=== PATIENT | male | born 1945 | race Caucasian/White ===

== ENCOUNTER 2016-05-29 12:47 | Emergency (ER) | END 2016-05-29 16:39 | disposition home or self-care (01) | CPT/HCPCS: 10060; 87070; 87205; 99283; A9270 ==

== ENCOUNTER 2016-11-01 08:50 | Outpatient (CLI) | payer MEDICARE, OTHER ==
[2016-11-01 19:05] LABS: ALBUMIN/GLOBULIN RATIO 1.2 (1.0-2.2); BILIRUBIN,TOTAL 1.2 mg/dL (0.2-1.0); CALCIUM 8.6 mg/dL (8.5-10.3); CREATININE 0.8 mg/dL (0.6-1.2); POTASSIUM 4.1 mmol/L (3.5-5.0); TOTAL PROTEIN 6.5 g/dL (6.7-8.2)
[2016-11-03 19:51] LABS: TEST RESULT REPORT (())
[2016-11-04 00:12] LABS: HDL LARGE 5261 nmol/L (4334-10815); LDL MEDIUM 238 nmol/L (167-465); LDL PARTICLE NUMBER 977 nmol/L (1016-2185); LDL PATTERN B Pattern (A); LDL PEAK SIZE 215.6 Angstrom (> OR = 218.2); LDL SMALL 182 nmol/L (123-441)
== END 2016-11-01 08:51 | disposition home or self-care (01) ==
LOC: LAB.F 08:50
PROVIDERS: ATTEND Specialist
DX: I25.10 Atherosclerotic heart disease of native coronary artery without angina pectoris (principal); E78.5 Hyperlipidemia, unspecified; I10 Essential (primary) hypertension; R60.0 Localized edema; Z91.89 Other specified personal risk factors, not elsewhere classified; J44.9 Chronic obstructive pulmonary disease, unspecified
CPT/HCPCS: 36415; 80053; 81599; 82465; 83704; 83718; 84478

== ENCOUNTER 2017-05-08 11:29 | Outpatient (CLI) | payer MEDICARE, OTHER ==
[2017-05-08 18:52] LABS: ALBUMIN 3.9 g/dL (3.2-5.5); ALBUMIN/GLOBULIN RATIO 1.4 (1.0-2.2); BILIRUBIN,TOTAL 1.5 mg/dL (0.2-1.0); CALCIUM 8.5 mg/dL (8.5-10.3); TOTAL PROTEIN 6.6 g/dL (6.7-8.2)
[2017-05-10 19:31] LABS: HDL LARGE 4172 nmol/L (4334-10815); LDL PARTICLE NUMBER 733 nmol/L (1016-2185); LDL PATTERN B Pattern (A); LDL PEAK SIZE 214.4 Angstrom (> OR = 218.2); LDL SMALL 144 nmol/L (123-441)
== END 2017-05-08 11:30 | disposition home or self-care (01) ==
LOC: LAB.F 11:29
PROVIDERS: ATTEND Specialist
DX: E78.5 Hyperlipidemia, unspecified (principal)
CPT/HCPCS: 36415; 80053; 81599; 82465; 83704; 83718; 84478

== ENCOUNTER 2017-10-23 09:19 | Outpatient (CLI) | payer MEDICARE, OTHER ==
[2017-10-23 18:20] LABS: ALBUMIN 3.7 g/dL (3.2-5.5); ALBUMIN/GLOBULIN RATIO 1.4 (1.0-2.2); BILIRUBIN,TOTAL 1.3 mg/dL (0.2-1.0); CALCIUM 8.5 mg/dL (8.5-10.3); CREATININE 0.9 mg/dL (0.6-1.2); TOTAL PROTEIN 6.4 g/dL (6.7-8.2)
[2017-10-26 15:11] LABS: HDL LARGE 3968 nmol/L (3382-9376); LDL PARTICLE NUMBER 690 nmol/L (732-2035); LDL PATTERN A Pattern (A); LDL PEAK SIZE 219.3 Angstrom (> OR = 217.4); LDL SMALL 106 nmol/L (85-473)
== END 2017-10-23 09:20 | disposition home or self-care (01) ==
LOC: LAB.F 09:19
PROVIDERS: ATTEND Specialist
DX: E78.2 Mixed hyperlipidemia (principal)
CPT/HCPCS: 36415; 80053; 81599; 82465; 83704; 83718; 84478

== ENCOUNTER 2018-04-15 15:15 | Outpatient (CLI) | payer MEDICARE, OTHER ==
[2018-04-15 18:44] LABS: ALBUMIN 3.7 g/dL (3.2-5.5); BILIRUBIN,TOTAL 1.5 mg/dL (0.2-1.0); CALCIUM 8.5 mg/dL (8.5-10.3); CREATININE 0.8 mg/dL (0.6-1.2); TOTAL PROTEIN 7.3 g/dL (6.7-8.2)
[2018-04-18 00:02] LABS: HDL LARGE 5592 nmol/L (3382-9376); LDL PARTICLE NUMBER 947 nmol/L (732-2035); LDL PATTERN A Pattern (A); LDL PEAK SIZE 223.6 Angstrom (> OR = 217.4); LDL SMALL 136 nmol/L (85-473)
== END 2018-04-15 15:16 | disposition home or self-care (01) ==
LOC: LAB.F 15:15
PROVIDERS: ATTEND Specialist
DX: E78.2 Mixed hyperlipidemia (principal)
CPT/HCPCS: 36415; 80053; 81599; 82465; 83704; 83718; 84478

== ENCOUNTER 2018-10-17 11:03 | Outpatient (CLI) | payer MEDICARE, OTHER ==
[2018-10-17 18:03] LABS: ALBUMIN 3.7 g/dL (3.2-5.5); ALBUMIN/GLOBULIN RATIO 1.3 (1.0-2.2); BILIRUBIN,TOTAL 1.3 mg/dL (0.2-1.0); CALCIUM 8.3 mg/dL (8.5-10.3); CREATININE 0.8 mg/dL (0.6-1.2); TOTAL PROTEIN 6.6 g/dL (6.7-8.2)
[2018-10-20 17:56] LABS: HDL LARGE 3643 nmol/L (3382-9376); LDL PARTICLE NUMBER 540 nmol/L (732-2035); LDL PATTERN A Pattern (A); LDL PEAK SIZE 219.9 Angstrom (> OR = 217.4); LDL SMALL 87 nmol/L (85-473)
== END 2018-10-17 11:04 | disposition home or self-care (01) ==
LOC: LAB.F 11:03
PROVIDERS: ATTEND Specialist
DX: E78.2 Mixed hyperlipidemia (principal)
CPT/HCPCS: 36415; 80053; 81599; 83704

== ENCOUNTER 2019-08-12 11:12 | Outpatient (CLI) | payer MEDICARE, OTHER ==
[2019-08-12 17:18] LABS: ALBUMIN 3.8 g/dL (3.2-5.5); ALBUMIN/GLOBULIN RATIO 1.4 (1.0-2.2); BILIRUBIN,TOTAL 1.2 mg/dL (0.2-1.0); CALCIUM 8.5 mg/dL (8.5-10.3); CREATININE 0.9 mg/dL (0.6-1.2); TOTAL PROTEIN 6.6 g/dL (6.7-8.2)
[2019-08-15 22:00] LABS: HDL LARGE 5595 nmol/L (>6729); LDL PARTICLE NUMBER 654 nmol/L (<1138); LDL PATTERN B Pattern (A); LDL PEAK SIZE 216.8 Angstrom (>222.9); LDL SMALL 110 nmol/L (<142)
== END 2019-08-12 11:13 | disposition home or self-care (01) ==
LOC: LAB.S 11:12
PROVIDERS: ATTEND Specialist
DX: E78.2 Mixed hyperlipidemia (principal)
CPT/HCPCS: 36415; 80053; 80061; 81599; 83704

== ENCOUNTER 2019-11-29 15:59 | Emergency (ER) | payer MEDICARE, OTHER ==
[2019-11-29] MEDS ORDERED: FUROSEMIDE 40 MG/4 ML VIAL IVP STA (16:42)
--- NOTE | 2019-11-29 16:48 | ED Physician Documentation ---
History of Present Illness - Stated complaint Stated Complaint: BILAT LEG BLISTERS/REDNESS/SWELLING - Chief complaint Chief Complaint: Ext Problem - History obtained from History obtained from: Patient - History of Present Illness Timing: Chronic Pain level max: 4 Pain level now: 4 - Additonal information Additional information: 74-year-old male presents to the emergency department with chronic swelling in the bilateral lower extremities. He has had blistering to the legs for the past week as well. Was seen at the walk-in clinic and started on Keflex. States he is not improving. Nothing makes it better or worse. No fevers. No chills. Review of Systems Constitutional: denies: Fever, Chills Respiratory: denies: Cough GI: denies: Nausea, Vomiting, Diarrhea Skin: denies: Rash Musculoskeletal: denies: Neck pain, Back pain Neurologic: denies: Headache PD PAST MEDICAL HISTORY - Past Medical History Cardiovascular: Hypertension Respiratory: Asthma, COPD Endocrine/Autoimmune: None GI: None : None HEENT: None Psych: None Musculoskeletal: Gout Derm: Eczema - Present Medications Home Medications: Ambulatory Orders Medication Instructions Recorded Confirmed Albuterol Sulfate [Proair Hfa] PRN 10/28/15 Ipratropium/Albuterol [Duoneb] DAILY 10/28/15 Losartan [Cozaar] 50 mg PO DAILY 10/28/15 10/28/15 Doxycycline Hyclate 100 mg PO BID #14 tablet 05/29/16 Furosemide [Lasix] 40 mg PO DAILY #14 tablet 11/29/19 - Allergies Allergies/Adverse Reactions: Allergies Allergy/AdvReac Type Severity Reaction Status Date / Time Sulfa (Sulfonamide Allergy Edema Verified 11/29/19 16:02 Antibiotics) - Social History Does the pt smoke?: No Smoking Status: Never smoker PD ED PE NORMAL - Vitals Vital signs reviewed: Yes - General General: Alert and oriented X 3, No acute distress - Neck Neck: Supple, no meningeal sign - Cardiac Cardiac: RRR - Respiratory Respiratory: No respiratory distress, Clear bilaterally - Abdomen Abdomen: Soft, Non tender, Non distended - Derm Derm: Warm and dry - Extremities Extremities: Other (Weeping, pitting edema bilaterally) - Neuro Neuro: Alert and oriented X 3 - Psych Psych: Normal mood, Normal affect Results - Vitals Vitals: Vital Signs - 24 hr 11/29/19 11/29/19 16:02 17:21 Temperature 98.3 C H Heart Rate 60 53 L Respiratory 20 20 Rate Blood Pressure 125/61 122/66 O2 Saturation 95 97 Oxygen O2 Source Room air - Labs Labs: Laboratory Tests 11/29/19 11/29/19 11/29/19 16:54 16:54 16:54 WBC 6.3 RBC 4.97 Hgb 14.5 Hct 44.1 MCV 88.7 MCH 29.2 MCHC 32.9 RDW 13.1 Plt Count 225 MPV 9.4 Neut # (Auto) 4.5 Lymph # (Auto) 1.0 L Maury # (Auto) 0.6 Eos # (Auto) 0.2 Baso # (Auto) 0.0 Absolute Nucleated RBC 0.00 Nucleated RBC % 0.0 ESR 2 Sodium 136 Potassium 3.9 Chloride 98 L Carbon Dioxide 25 Anion Gap 13.0 BUN 20 Creatinine 1.0 Estimated GFR (MDRD) 73 L Glucose 105 H Calcium 8.4 L C-Reactive Protein 1.0 PD MEDICAL DECISION MAKING - ED course Complexity details: reviewed results, re-evaluated patient, considered differential, d/w patient ED course: Patient with bilateral lower extremity edema, weeping. Given Lasix. Not on diuretics at home. We will start him on Lasix for home. His allergy to sulfa was that the tip of his penis apparently turned purple. He states he has had other drugs with sulfa that did not cause that reaction. He was given Lasix here without any difficulty. No signs of infection at this time. Patient counseled regarding signs and symptoms for which I believe and urgent re- evaluation would be necessary. Patient with good understanding of and agreement to plan and is comfortable going home at this time This document was made in part using voice recognition software. While efforts are made to proofread this document, sound alike and grammatical errors may occur. Departure - Departure Disposition: 01 Home, Self Care Clinical Impression: Peripheral edema Condition: Good Instructions: ED Edema Legs Bilateral Follow-Up: Taylor Murillo ARNP [Primary Care Provider] - Within 1 week Prescriptions: Furosemide [Lasix] 40 mg PO DAILY #14 tablet Comments: Use the Lasix as prescribed. Return if you worsen. You should start to notice improvement in 1 to 2 days. Elevate your legs whenever possible. You can also use Giovanni bandages to apply compression, start wrapping at your toes and wrap up your leg.
[2019-11-29 16:59] LABS: BASOPHILS % (AUTO) 0.2 %; EOSINOPHILS # (AUTO) 0.2 10^3/uL (0.0-0.7); EOSINOPHILS % (AUTO) 3.2 %; HGB - HEMOGLOBIN 14.5 g/dL (14.0-18.0); LYMPHOCYTES % (AUTO) 15.3 %; MEAN CORPUSCULAR HEMOGLOBIN 29.2 pg (27.0-31.0); MEAN CORPUSCULAR HGB CONC 32.9 g/dL (32.0-36.0); MEAN CORPUSCULAR VOLUME 88.7 fL (80.0-94.0); MEAN PLATELET VOLUME 9.4 fL (7.4-11.4); MONOCYTES # (AUTO) 0.6 10^3/uL (0.0-1.0); MONOCYTES % (AUTO) 9.6 %; NEUTROPHILS # (AUTO) 4.5 10^3/uL (1.5-6.6); NEUTROPHILS % (AUTO) 71.2 %; PLT - PLATELET COUNT 225 10^3/uL (130-450); RED BLOOD COUNT 4.97 10^6/uL (4.70-6.10); RED CELL DISTRIBUTION WIDTH 13.1 % (12.0-15.0); WHITE BLOOD COUNT 6.3 x10^3/uL (4.8-10.8)
[2019-11-29 17:18] LABS: CALCIUM 8.4 mg/dL (8.5-10.3)
[2019-11-29 17:48] VITALS: BP 116/64
== END 2019-11-29 17:58 | disposition home or self-care (01) ==
LOC: ED 15:59
DX: R60.0 Localized edema (principal)
CPT/HCPCS: 36415; 80048; 85025; 85651; 86140; 96374; 99284

== ENCOUNTER 2019-11-29 21:11 | Emergency (ER) | payer MEDICARE, OTHER ==
--- NOTE | 2019-11-29 21:28 | ED Physician Documentation ---
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 this evening, patient had one episode of gross hematuria with clots. denies pain, denies h/o similar symptoms. no blood thinners except 81mg QD ASA Review of Systems Constitutional: reports: Reviewed and negative Respiratory: reports: Reviewed and negative GI: reports: Reviewed and negative : reports: Hematuria. denies: Dysuria, Frequency Endocrine: denies: Easy bruising / bleeding PD PAST MEDICAL HISTORY - Past Medical History Cardiovascular: Hypertension Respiratory: Asthma, COPD Endocrine/Autoimmune: None GI: None : None HEENT: None Psych: None Musculoskeletal: Gout Derm: Eczema - Present Medications Home Medications: Ambulatory Orders Medication Instructions Recorded Confirmed Albuterol Sulfate [Proair Hfa] PRN 10/28/15 Ipratropium/Albuterol [Duoneb] DAILY 10/28/15 Losartan [Cozaar] 50 mg PO DAILY 10/28/15 10/28/15 Doxycycline Hyclate 100 mg PO BID #14 tablet 05/29/16 Furosemide [Lasix] 40 mg PO DAILY #14 tablet 11/29/19 - Allergies Allergies/Adverse Reactions: Allergies Allergy/AdvReac Type Severity Reaction Status Date / Time Sulfa (Sulfonamide Allergy Edema Verified 11/29/19 16:02 Antibiotics) - Social History Does the pt smoke?: No Smoking Status: Never smoker PD ED PE NORMAL - Vitals Vital signs reviewed: Yes - General General: Alert and oriented X 3, No acute distress, Well developed/nourished - Abdomen Abdomen: Normal bowel sounds, Soft, Non tender, Non distended - Back Back: No CVA TTP - Derm Derm: No rash Results - Vitals Vitals: Oxygen O2 Source Room air - Labs Labs: Microbiology 11/29/19 21:36 Urine Culture - Preliminary Urine,Clean Catch No growth Laboratory Tests 11/29/19 21:36 Urine Color YELLOW Urine Clarity CLEAR Urine pH 6.0 Ur Specific [place] 1.015 Urine Protein NEGATIVE Urine Glucose (UA) NEGATIVE Urine Ketones NEGATIVE Urine Occult Blood MODERATE H Urine Nitrite NEGATIVE Urine Bilirubin NEGATIVE Urine Urobilinogen 0.2 (NORMAL) Ur Leukocyte Esterase TRACE H Urine RBC 11-25 H Urine WBC 4-5 Ur Squamous Epith Cells NONE SEEN Urine Bacteria None Seen Urine Culture Comments INDICATED PD MEDICAL DECISION MAKING - ED course Complexity details: reviewed old records, reviewed results, re-evaluated patient, considered differential, d/w patient ED course: painless hematuria at home, urine sample provided in ED is without gross he maturia, 11-25 RBC/hpf and no wbc (micro) nor bacteria. Departure - Departure Disposition: 01 Home, Self Care Clinical Impression: Hematuria Qualifiers: Hematuria type: unspecified type Qualified Code(s): R31.9 - Hematuria, unspecified Condition: Good Instructions: ED Hematuria Follow-Up: Taylor Murillo ARNP [Primary Care Provider] - Discharge Date/Time: 11/29/19 22:48
[2019-11-29 21:42] LABS: BILIRUBIN,URINE NEGATIVE (NEGATIVE); GLUCOSE, URINE (UA) NEGATIVE (NEGATIVE); KETONES,URINE (UA) NEGATIVE (NEGATIVE); LEUKOCYTE ESTERASE, URINE TRACE (NEGATIVE); NITRITE,URINE NEGATIVE (NEGATIVE); OCCULT BLOOD,URINE MODERATE (NEGATIVE); PROTEIN,URINE NEGATIVE (NEGATIVE); UROBILINOGEN,URINE 0.2 (NORMAL) E.U./dL (NORMAL)
[2019-11-29 21:49] LABS: BACTERIA,URINE None Seen /HPF (None Seen); CLARITY,URINE CLEAR (CLEAR); SQUAMOUS EPITHELIAL CELL,UR NONE SEEN (<= Few)
[2019-11-29 22:47] VITALS: BP 133/65
== END 2019-11-29 22:48 | disposition home or self-care (01) ==
LOC: ED 21:11
DX: R31.9 Hematuria, unspecified (principal); R60.0 Localized edema
CPT/HCPCS: 36415; 80048; 81001; 85025; 85651; 86140; 87086; 96374; 99283; 99284

== ENCOUNTER 2019-12-06 16:28 | Outpatient (CLI) | payer MEDICARE, OTHER ==
--- NOTE | 2019-12-07 09:29 | Ultrasound Report ---
PROCEDURE: Retroperitoneal INDICATIONS: HEMATURIA TECHNIQUE: Real-time scanning was performed of the retroperitoneal organs, with image documentation. COMPARISON: None. FINDINGS: Kidneys: Kidneys are normal in size. Right kidney measures 12.9 cm long; left kidney measures 13 po int to cm long. Right renal cortical thickness is 1.4 cm; left renal cortical thickness is 1.3 cm. No solid masses, hydronephrosis, or nephrolithiasis. There is a parapelvic cyst in the mid left kidn ey measuring 2.8 x 1.5 x 1.7 cm. Bladder: Prevoid volume is 532 mL. Postvoid volume is 311 mL. Both ureteral jets were visualized. IMPRESSION: 1. A simple cyst in the mid left kidney. Otherwise normal normal kidneys. No renal stone identified o n ultrasound. No hydronephrosis. 2. Large post void residual suggesting bladder outlet obstruction. Reviewed by: Mer Becerra MD on 12/07/2019 9:28 AM PDT Approved by: Mer Becerra MD on 12/07/2019 9:28 AM PDT Station ID: [id number]
== END 2019-12-06 16:29 | disposition home or self-care (01) ==
LOC: DI 16:28
PROVIDERS: ATTEND Family Medicine
DX: R31.9 Hematuria, unspecified (principal); N28.1 Cyst of kidney, acquired
CPT/HCPCS: 76770

== ENCOUNTER 2020-02-19 12:17 | Outpatient (CLI) | payer MEDICARE, OTHER ==
[2020-02-19 12:36] LABS: CALCIUM 8.7 mg/dL (8.5-10.3); CREATININE 0.9 mg/dL (0.6-1.2)
[2020-02-19] MEDS ORDERED: IOVERSOL 320 100 ML VIAL IVP ONE ×2 (12:43→13:42)
--- NOTE | 2020-02-19 14:21 | CT Report ---
PROCEDURE: IVP INDICATIONS: GROSS HEMATURIA CONTRAST: IV CONTRAST: Optiray 320 ml: 140 PO CONTRAST: *NO PO CONTRAST TECHNIQUE: After the administration of intravenous contrast, 5 mm thick sections acquired from the diaphragms to the symphysis. 5 mm thick coronal and sagittal reformats were acquired. For radiation dose reducti on, the following was used: automated exposure control, adjustment of mA and/or kV according to macyo ent size. COMPARISON: Ultrasound, retroperitoneum, 12/06/2019. Chest x-ray, one view, 01/18/2016 FINDINGS: Image quality: Excellent. Lung bases: Mild nodular infiltrates and bronchiectasis at lung bases bilaterally. Heart size is nor mal. Small hiatal hernia. Urinary system: Both kidneys are normal in size and enhancement. There is trace bilateral renal pel viectasis. Mild perinephric stranding bilaterally. Contrast-filled renal calyces are normal in morpho logy. Contrast filled portions of both ureters are normal in caliber. Bladder wall thickness is nor mal. There are small bladder stones in the dependent bladder lumen. The largest stone is a linear st one measuring 3 x 17 mm. No bladder masses. Prostate is prominent. Solid organs: Liver is normal in size and enhancement. Spleen is mildly enlarged measuring 14.3 cm in length. Gallbladder contains a calcified gallstone. Biliary system is non dilated. Pancreas enha nces normally. No adrenal nodules. Peritoneum and bowel: Bowel loops demonstrate normal wall thickness and caliber. No free fluid or a ir. Nodes and vessels: No retroperitoneal or mesenteric adenopathy by size criteria. Aorta and inferior vena cava are normal in size. Abdominal wall: No ventral hernias. Pelvis: No pathologic free pelvic fluid. No inguinal hernias or adenopathy. Bones: No suspicious bony lesions. No vertebral body compression fractures. IMPRESSION: 1. There is mild bilateral renal pelviectasis. The ureters are normal in caliber. No renal stones or ureteral stones. There are stones within the bladder lumen, which may be recent passage stones or de lorie stones formed within the urinary bladder. 2. Mild prostate enlargement. 3. Cholelithiasis. No CT findings to suggest acute cholecystitis. 4. Mild splenomegaly. 5. There are nodular infiltrates with bronchiectasis at lung bases bilaterally. Differential diagnose s include chronic infection or aspiration. Chest CT with contrast is recommended for follow-up evalua tion. 6. Small hiatal hernia. Reviewed by: Mer Becerra MD on 02/19/2020 2:19 PM PDT Approved by: Mer Becerra MD on 02/19/2020 2:19 PM PDT Station ID: [id number]
== END 2020-02-19 12:18 | disposition home or self-care (01) ==
LOC: DI 12:17
PROVIDERS: ATTEND Physician Assistant
DX: R31.0 Gross hematuria (principal); N40.0 Benign prostatic hyperplasia without lower urinary tract symptoms; K80.20 Calculus of gallbladder without cholecystitis without obstruction; K44.9 Diaphragmatic hernia without obstruction or gangrene; R16.1 Splenomegaly, not elsewhere classified
CPT/HCPCS: 36415; 74178; 80048; Q9967

== ENCOUNTER 2020-11-09 11:11 | Outpatient (CLI) | payer MEDICARE, OTHER ==
[2020-11-09 15:20] LABS: ALBUMIN 3.6 g/dL (3.2-5.5); ALBUMIN/GLOBULIN RATIO 1.1 (1.0-2.2); BILIRUBIN,TOTAL 1.4 mg/dL (0.2-1.0); CALCIUM 8.6 mg/dL (8.5-10.3); CREATININE 0.9 mg/dL (0.6-1.2); POTASSIUM 3.9 mmol/L (3.5-5.0); TOTAL PROTEIN 6.8 g/dL (6.7-8.2)
[2020-11-13 12:01] LABS: HDL LARGE 4709 nmol/L (>6729); LDL MEDIUM 212 nmol/L (<215); LDL PARTICLE NUMBER 907 nmol/L (<1138); LDL PATTERN B Pattern (A); LDL SMALL 171 nmol/L (<142)
== END 2020-11-09 11:12 | disposition home or self-care (01) ==
LOC: LAB.S 11:11
PROVIDERS: ATTEND Specialist
DX: E78.00 Pure hypercholesterolemia, unspecified (principal)
CPT/HCPCS: 36415; 80053; 80061; 81599; 83704

== ENCOUNTER 2020-12-27 08:00 | Outpatient (CLI) | payer MEDICARE, OTHER | END 2020-12-27 23:59 | disposition home or self-care (01) | LOC: LAB.S 08:00 | PROVIDERS: ATTEND Physician Assistant Medical | DX: R30.0 Dysuria (principal) | CPT/HCPCS: 87086 ==

== ENCOUNTER 2021-08-02 09:47 | Outpatient (CLI) | payer MEDICARE, OTHER ==
[2021-08-02 14:33] LABS: ALBUMIN 3.8 g/dL (3.2-5.5); ALBUMIN/GLOBULIN RATIO 1.1 (1.0-2.2); BILIRUBIN,TOTAL 1.1 mg/dL (0.2-1.0); CALCIUM 8.8 mg/dL (8.5-10.3); CREATININE 0.8 mg/dL (0.6-1.2); POTASSIUM 4.1 mmol/L (3.5-5.0); TOTAL PROTEIN 7.2 g/dL (6.7-8.2)
[2021-08-09 10:17] LABS: HDL LARGE 4856 nmol/L (>6729); LDL MEDIUM 136 nmol/L (<215); LDL PARTICLE NUMBER 676 nmol/L (<1138); LDL PATTERN A Pattern (A); LDL PEAK SIZE 221.1 Angstrom (>222.9); LDL SMALL 122 nmol/L (<142)
== END 2021-08-02 09:48 | disposition home or self-care (01) ==
LOC: LAB.S 09:47
PROVIDERS: ATTEND Specialist
DX: E78.00 Pure hypercholesterolemia, unspecified (principal)
CPT/HCPCS: 36415; 80053; 80061; 81599; 82172; 83695; 83704

== ENCOUNTER 2022-07-07 12:48 | Outpatient (CLI) | payer MEDICARE, OTHER ==
[2022-07-07 16:28] LABS: ALBUMIN 3.4 g/dL (3.2-5.5); ALBUMIN/GLOBULIN RATIO 1.1 (1.0-2.2); ALKALINE PHOSPHATASE 56 IU/L (42-121); ALT ALANINE AMINOTRANSFERASE 35 IU/L (10-60); AST ASPARTATE AMINOTRANSFERASE 46 IU/L (10-42); BILIRUBIN,TOTAL 1.5 mg/dL (0.2-1.0); BUN - BLOOD UREA NITROGEN 16 mg/dL (6-20); CALCIUM 8.7 mg/dL (8.5-10.3); CARBON DIOXIDE - CO2 21 mmol/L (21-32); CHLORIDE 102 mmol/L (101-111); CHOL/HDL RATIO 1.9 (<5.0); CHOLESTEROL 102 mg/dL; CREATININE 0.9 mg/dL (0.6-1.2); GFR - MDRD 82 (>89); GLUCOSE 95 mg/dL (70-100); HDL CHOLESTEROL 54 mg/dL; LDL CHOLESTEROL,CALCULATED 35 mg/dL; LDL/HDL RATIO 0.6 (<3.6); MAGNESIUM 2.4 mg/dL (1.7-2.8); POTASSIUM 4.1 mmol/L (3.5-5.0); SODIUM 135 mmol/L (135-145); TOTAL PROTEIN 6.5 g/dL (6.7-8.2); TRIGLYCERIDES 63 mg/dL; VLDL CHOLESTEROL 13 mg/dL
[2022-07-11 08:10] LABS: HDL-P (TOTAL) 31.5 umol/L (>=30.5); LDL SIZE 20.7 nm (>20.5); LDL-P 401 nmol/L (<1000); LP-INSULIN RESISTANCE SCORE <25 (<=45); SMALL LDL-P <90 nmol/L (<=527)
== END 2022-07-07 12:49 | disposition home or self-care (01) ==
LOC: LAB.S 12:48
PROVIDERS: ATTEND Specialist
DX: E78.00 Pure hypercholesterolemia, unspecified (principal); I10 Essential (primary) hypertension
CPT/HCPCS: 36415; 80053; 80061; 83704; 83721; 83735

== ENCOUNTER 2022-09-01 13:51 | Outpatient (CLI) | payer MEDICARE, OTHER ==
--- NOTE | 2022-09-01 14:32 | SLEEP CARE CONSULTATION ---
Information from patient questionnaire entered by Candy Cage. I have reviewed and concur with the information entered by Candy Cage. This document represents the service I personally performed and the decisions made by me, Damaris Rutledge ARNP. History of Present Illness Service Date and Time: 09/01/2022 1351 Reason for Visit: New patient Chief Complaint: reports: Unrefreshed sleep, Snoring, Fatigue, Frequent awakenings at night Date of Onset: MANY YRS Usual bedtime: 1-2AM Time it takes to fall asleep: USUALLY LONG; under 10 minutes, can vary Snores at night: Yes Observed to quit breathing while asleep: Yes Sleeps alone due to snoring: No (sleeps in separate room from ) Number of times waking at night: 2-3 Reasons for waking at night: reports: Bathroom, Other (UNKNOWN, FEED CATS). denies: Choking, Snoring, Gasping for air Toss, Turn, or Twitch while sleeping: No Recalls having dreams: Yes Usually gets out of bed at: 1030AM-12PM Feels refreshed in the morning: Yes (usually not) Morning headache: No Sleepy or fatigued during the day: Yes Ever fallen asleep while driving: No Takes day naps: Yes (1-2 days a week for about an hour or 1.5 hrs) Dreams during day naps: No Prior sleep studies: No Additional HPI information: I had the pleasure of seeing MERE JACOBSON today regarding the possibility of him having a sleep disorder. His current complaints are unrefreshed sleep, snoring, fatigue and frequent night awakenings. 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 He states he snores but he no longer wakes himself up gasping in his sleep. He states he has a history of COPD and low lung capacity. He wakes up several times a night. He does not usually wake up feeling rested. 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 Patient is and lives in [place]. Have you smoked in the past 12 months: No Alcohol use: No Caffeine use: Yes Caffeine amount and frequency: 2 CUPS DAILY AT BREAKFAST Family History Family history of sleep disordered breathing: Yes Family Hx Sleep Apnea: Sibling: Snoring, Sleep apnea - Treated Allergies and Home Medications Known drug allergies: Yes (sulfa) Drug allergies reviewed: Yes Home medication list reviewed: Yes Allergy and home medication list: Allergies Sulfa (Sulfonamide Antibiotics) Allergy (Verified 08/31/22 13:03) Edema skin at tip of penis sloughed off. Medications: Finasteride Prednisone Advair (generic) Atorvastatin DuoNeb bid Review of Systems Weight gain over past 5 years: 20 Cardiovascular: reports: leg or foot swelling. denies: high blood pressure Respiratory: reports: shortness of breath, wheeze Gastrointestinal: denies: heartburn Neurological: denies: headaches Psychiatric: denies: anxiety, depression Ear/Nose/Throat: reports: nasal congestion, wisdom teeth removed. denies: tonsillectomy Immunologic: reports: allergies to food or environment Physical Exam Vital signs obtained and entered by: CANDY Colin MA Blood Pressure: 144/80 (LEFT ARM) Cuff size: regular Heart Rate: 68 O2 Saturation: 95 Height: 5 ft 9 in Weight: 280 lb 9.6 oz Body Mass Index: 41.4 BMI Classification: Morbidly Obese Neck circumference: 16.5 Mouth and throat: narrow oropharynx Soft palate: long Hard palate: normal Uvula: normal Uvula visualization: 25% Mallampati Class III Tongue: enlarged in size with teeth barboza on lateral edges Tonsils: small Heart: regular rate and rhythm Lungs: clear bilaterally Impression and Plan 1. Suspected Obstructive Sleep Apnea-Hypopnea Syndrome, as suggested by a history of loud and irregular snoring, observed cessation of breath while asleep, frequent awakening during the night and unrefreshed sleep. Narrow oropharynx and obesity are common predisposing factors for obstructive sleep apnea-hypopnea syndrome. I recommend proceeding to polysomnography to confirm the diagnosis and to assess severity. If the patient has significant sleep disordered breathing, a manual CPAP titration study will also be performed to find the optimal treatment pressure. I informed the patient of what the sleep studies involve and after some discussion, obtained agreement to proceed. The pathophysiology of obstructive sleep apnea-hypopnea syndrome was discussed with the patient and health risks of cardiovascular and cerebrovascular disease if not treated. Risks of drowsy driving discussed in detail and patient advised to avoid long distance driving and to brisket puller at the first sign of drowsiness. Patient agreed to plan. * Schedule polysomnography * Avoid long distance driving or driving when feeling sleepy. * Avoid alcohol, sedative and muscle relaxant around bedtime. * Attempt to lose weight. * Review instructions provided by trained office staff on how to prepare for the sleep study. * Return for follow-up after sleep study completed. Counseling Topics: Weight loss health impact Visit Type: In Office Time Spent with Patient (minutes): 32 Provider Statement: I spent 100% of the Face to Face Visit with the patient with greater than 50% spent counseling the patient and coordination of care.
[2022-09-01 14:36] VITALS: BP 144/80
== END 2022-09-01 13:52 | disposition home or self-care (01) ==
LOC: SC 13:51
PROVIDERS: ATTEND Nurse Practitioner Family
DX: R53.83 Other fatigue (principal); G47.8 Other sleep disorders; R06.81 Apnea, not elsewhere classified; R06.83 Snoring; I25.10 Atherosclerotic heart disease of native coronary artery without angina pectoris; E66.01 Morbid (severe) obesity due to excess calories; Z68.41 Body mass index [BMI] 40.0-44.9, adult
CPT/HCPCS: 99203; G0463; 99212

== ENCOUNTER 2022-09-25 20:23 | Outpatient (CLI) | payer MEDICARE, OTHER | END 2022-09-25 20:24 | disposition home or self-care (01) | LOC: SC 20:23 | PROVIDERS: ATTEND Nurse Practitioner Family | DX: G47.33 Obstructive sleep apnea (adult) (pediatric) (principal); G47.61 Periodic limb movement disorder; E66.01 Morbid (severe) obesity due to excess calories; Z68.41 Body mass index [BMI] 40.0-44.9, adult | CPT/HCPCS: 95810 ==

== ENCOUNTER 2022-10-27 14:41 | Outpatient (CLI) | payer MEDICARE, OTHER ==
--- NOTE | 2022-10-27 15:04 | Sleep Patient Instructions ---
Sleep Center Visit Summary - Patient Visit Information Reason for Visit: Sleep Study Followup - Patient Instructions Additional Instructions: You are to start Positional therapy to control your sleep apnea. You may obtain positional belts or other commercial devices online. You may also use pillows to position yourself on your side or a T shirt with balls sewn into the back to help keep you on your side to sleep. We would like to follow up with you in a month to check effectiveness of therapy. Please follow up in the sleep care office in 1-2 months. - Clinic Information Contact: [facility] [address] [place] [email or web address] T: [phone]
--- NOTE | 2022-10-27 15:07 | SLEEP CARE CONSULTATION ---
Information from patient questionnaire entered by Maribel Cage. I have reviewed and concur with the information entered by Maribel Cage. This document represents the service I personally performed and the decisions made by , Damaris Rutledge ARNP. History of Present Illness Service Date and Time: 10/27/2022 1441 Initial [place] Sleepiness Scale score: 4 (09/01/22) Current [place] Sleepiness Scale score: 5 (10/27/22) Additional HPI information: MERE JACOBSON returns for follow up and results of the recently performed polysomnography. I explained the pathophysiology behind obstructive sleep apnea. We then spent quite a bit of time discussing different treatment options. For mild obstructive sleep apnea, surgery and oral appliance are alternatives to nasal CPAP therapy but in moderate or severe cases, nasal CPAP is the most effective and reliable treatment. Because apnea is primarily in supine position, then positional management therapy could be effective. Methods discussed such as positioning with pillows, using a T-shirt with tennis balls in the back or commercial products that have a pillow format on back to prevent supine sleep. I reviewed the impact of weight changes on sleep apnea and strongly recommended losing weight. Patient counseled not drink alcohol less than 4 hours before bedtime as it can increase snoring and apnea. Patient does not drink alcohol. Patient was cautioned about risks of drowsy driving until sleepiness symptoms resolve. Patient denies drowsy driving. Sleep Study - Results Type of Sleep Study: Polysomnography (COMPLETED 09/25/22) Prior sleep studies: No Polysomnography/Home Sleep Study results: IMPRESSION: The quality of the study is good. The patient had reduced sleep efficiency due to frequent awakenings throughout the night. The sleep architecture was abnormal for sleep fragmentation and reduced amount of time spent in REM and slow wave sleep (N3). Respiratory monitoring showed mild obstructive sleep apneahypopnea (AHI = 14.0) associated with frequent arousals, oxyhemoglobin desaturation and mild hypoxia (ayo oxygen saturation of 85%). The respiratory events occurred almost exclusively during supine sleep (supine AHI = 48.9; non-supine = 2.91). Snore was light in intensity. There was mild periodic leg movement of sleep not contributing to the sleep fragmentation. Cardiac rhythm was normal sinus rhythm without significant arrhythmia. No abnormal behavior (parasomnia) observed during the night. Allergies and Home Medications Known drug allergies: Yes (sulfa) Drug allergies reviewed: Yes Home medication list reviewed: Yes (no changes) Allergy and home medication list: Allergies Sulfa (Sulfonamide Antibiotics) Allergy (Verified 10/26/22 15:03) Edema skin at tip of penis sloughed off. Review of Systems Review of systems same as previous: Yes (no changes) Physical Exam Vital signs obtained and entered by: MARIBEL Colin MA Blood Pressure: 136/84 (LEFT ARM) Cuff size: long Heart Rate: 70 O2 Saturation: 95 Height: 5 ft 9 in Weight: 289 lb Body Mass Index: 42.7 BMI Classification: Morbidly Obese Impression and Plan 1. Obstructive Sleep Apnea-Hypopnea Syndrome, mild, with lowest oxygen saturation of 85%. Obviously this is the cause of the patients symptoms of unrefreshed sleep, and excessive daytime sleepiness. Positive pressure therapy could benefit cardiac disease and COPD. Mere would like to think about his options. Since patients apnea is primarily in supine position, patient advised to try positional therapy and agreed with plan. He is also advised to lose weight as this will reduce snoring and apnea. An oral appliance can also be used for snoring but often is not covered by insurance. Follow up is scheduled for one month to check effectiveness and if further evaluation indicated such a repeat study in supine position only to see if additional treatment indicated. 2. Hypoxemia, mild, with a ayo oxygen saturation of 85% and 10.1 minutes spent under 90%. His baseline oxygen saturation was normal with an average oxygen saturation of 90%. 3. Periodic limb movement, mild, that did not fragment patients sleep. Periodic limb movement of sleep (PLMS) is characterized by episodes of repetitive limb movements that occur during sleep and usually involve the lower limbs. The etiology is unknown. Caffeine can aggravate PLMS and should be avoided. Sleep hygiene methods can also improve sleep as well as lifestyle changes such as regular exercise. Patient was advised that no treatment is needed at this time. If symptoms increase, then further evaluation is indicated. * Positional therapy * Attempt to lose weight. * Avoid supine sleep. * The patient is again cautioned about driving until sleepiness completely resolves. * Return in 1-2 months. I will assess response to therapy at that time. Counseling Topics: Sleeping position, Weight loss health impact Visit Type: In Office Time Spent with Patient (minutes): 15 Provider Statement: I spent 100% of the Face to Face Visit with the patient with greater than 50% spent counseling the patient and coordination of care.
[2022-10-27 15:15] VITALS: BP 136/84
== END 2022-10-27 14:42 | disposition home or self-care (01) ==
LOC: SC 14:41
PROVIDERS: ATTEND Nurse Practitioner Family
DX: G47.33 Obstructive sleep apnea (adult) (pediatric) (principal); R09.02 Hypoxemia; G47.61 Periodic limb movement disorder; E66.01 Morbid (severe) obesity due to excess calories; Z68.41 Body mass index [BMI] 40.0-44.9, adult
CPT/HCPCS: 99213; G0463; 99212

== ENCOUNTER 2022-11-27 08:00 | Outpatient (CLI) | payer MEDICARE, OTHER | END 2022-11-27 23:58 | disposition home or self-care (01) | LOC: LAB.R 08:00 | PROVIDERS: ATTEND Physician Assistant | DX: L03.115 Cellulitis of right lower limb (principal) | CPT/HCPCS: 87070; 87205 ==

== ENCOUNTER 2023-01-03 09:08 | Outpatient (CLI) | payer MEDICARE, OTHER ==
--- NOTE | 2023-01-03 13:31 | XRAY Report ---
PROCEDURE: Chest 2 View X-Ray INDICATIONS: FATIGUE, ACUTE TECHNIQUE: 2 views of the chest were acquired. COMPARISON: 01/18/2016. FINDINGS: Surgical changes and devices: None. Lungs and pleura: No pleural effusions or pneumothorax. Emphysematous changes are seen in bilateral lung portillo. Small atelectasis/scarring are noted at bilateral lung bases. Increased interstitial ret icular lung markings are noted. Mediastinum: Mediastinal contours appear normal. Heart size is normal. Bones and chest wall: No suspicious bony lesions. Overlying soft tissues appear unremarkable. IMPRESSION: No acute cardiopulmonary process. COPD and chronic interstitial lung parenchymal disease. Bibasilar atelectasis versus scarring. Reviewed by: Bari Cooper MD on 01/03/2023 1:30 PM PDT Approved by: Bari Cooper MD on 01/03/2023 1:30 PM PDT Station ID: [id number]
[2023-01-03 14:41] LABS: BASOPHILS % (AUTO) 0.5 %; EOSINOPHILS # (AUTO) 0.2 10^3/uL (0.0-0.7); EOSINOPHILS % (AUTO) 3.1 %; HCT - HEMATOCRIT 47.3 % (42.0-52.0); HGB - HEMOGLOBIN 14.9 g/dL (14.0-18.0); LYMPHOCYTES # (AUTO) 1.3 10^3/uL (1.5-3.5); LYMPHOCYTES % (AUTO) 20.3 %; MEAN CORPUSCULAR HEMOGLOBIN 28.1 pg (27.0-31.0); MEAN CORPUSCULAR HGB CONC 31.5 g/dL (32.0-36.0); MEAN CORPUSCULAR VOLUME 89.2 fL (80.0-94.0); MEAN PLATELET VOLUME 10.2 fL (7.4-11.4); MONOCYTES # (AUTO) 0.7 10^3/uL (0.0-1.0); MONOCYTES % (AUTO) 10.7 %; NEUTROPHILS # (AUTO) 4.1 10^3/uL (1.5-6.6); NEUTROPHILS % (AUTO) 65.1 %; PLT - PLATELET COUNT 226 10^3/uL (130-450); RED CELL DISTRIBUTION WIDTH 13.7 % (12.0-15.0); WHITE BLOOD COUNT 6.4 x10^3/uL (4.8-10.8)
[2023-01-03 15:59] LABS: ALBUMIN 3.8 g/dL (3.2-5.5); ALBUMIN/GLOBULIN RATIO 1.4 (1.0-2.2); ALKALINE PHOSPHATASE 69 IU/L (42-121); ALT ALANINE AMINOTRANSFERASE 24 IU/L (10-60); AST ASPARTATE AMINOTRANSFERASE 31 IU/L (10-42); BILIRUBIN,TOTAL 1.3 mg/dL (0.2-1.0); BUN - BLOOD UREA NITROGEN 20 mg/dL (6-20); CALCIUM 8.9 mg/dL (8.5-10.3); CARBON DIOXIDE - CO2 29 mmol/L (21-32); CHLORIDE 104 mmol/L (101-111); CHOL/HDL RATIO 2.2 (<5.0); CHOLESTEROL 94 mg/dL; GFR - MDRD 72 (>89); GLUCOSE 105 mg/dL (74-104); HDL CHOLESTEROL 43 mg/dL; LDL CHOLESTEROL,CALCULATED 35 mg/dL; LDL/HDL RATIO 0.8 (<3.6); SODIUM 136 mmol/L (135-145); TOTAL PROTEIN 6.6 g/dL (6.4-8.9); TRIGLYCERIDES 79 mg/dL (48-352); VLDL CHOLESTEROL 16 mg/dL
== END 2023-01-03 09:09 | disposition home or self-care (01) ==
LOC: DI.S 09:08
PROVIDERS: ATTEND Registered Nurse
DX: J44.9 Chronic obstructive pulmonary disease, unspecified (principal); J84.9 Interstitial pulmonary disease, unspecified; R53.83 Other fatigue; Z13.220 Encounter for screening for lipoid disorders; Z13.228 Encounter for screening for other metabolic disorders; Z13.29 Encounter for screening for other suspected endocrine disorder; Z13.0 Encounter for screening for diseases of the blood and blood-forming organs and certain disorders involving the immune mechanism
CPT/HCPCS: 36415; 80053; 80061; 82306; 82607; 82728; 83721; 84443; 85025

== ENCOUNTER 2023-10-15 08:11 | Outpatient (CLI) | payer MEDICARE, OTHER ==
[2023-10-15 15:36] LABS: ALBUMIN 3.8 g/dL (3.2-5.5); ALBUMIN/GLOBULIN RATIO 1.7 (1.0-2.2); ALKALINE PHOSPHATASE 51 IU/L (42-121); ALT ALANINE AMINOTRANSFERASE 30 IU/L (10-60); AST ASPARTATE AMINOTRANSFERASE 31 IU/L (10-42); BUN - BLOOD UREA NITROGEN 18 mg/dL (6-20); CARBON DIOXIDE - CO2 34 mmol/L (21-32); CHLORIDE 103 mmol/L (101-111); CHOL/HDL RATIO 1.9 (<5.0); CHOLESTEROL 104 mg/dL; GFR - MDRD 72 (>89); GLUCOSE 95 mg/dL (74-104); HDL CHOLESTEROL 55 mg/dL; LDL CHOLESTEROL,CALCULATED 39 mg/dL; LDL/HDL RATIO 0.7 (<3.6); POTASSIUM 3.8 mmol/L (3.5-4.5); SODIUM 140 mmol/L (135-145); TRIGLYCERIDES 48 mg/dL (48-352); VLDL CHOLESTEROL 10 mg/dL
== END 2023-10-15 08:12 | disposition home or self-care (01) ==
LOC: LAB.S 08:11
PROVIDERS: ATTEND Specialist
DX: E78.00 Pure hypercholesterolemia, unspecified (principal); I10 Essential (primary) hypertension
CPT/HCPCS: 36415; 80053; 80061; 83704; 83721; 83735

== ENCOUNTER 2024-01-01 15:13 | Outpatient (CLI) | payer MEDICARE, OTHER ==
--- NOTE | 2024-01-02 16:20 | DEXA Report ---
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 Regions measur ed are the AP Spine, femoral neck, and if needed forearm. COMPARISON: None FINDINGS: Lumbar Spine: Bone Mineral Density: 1.341 g/cm/cm,T score: 1.0. Left Femoral Neck: Bone Mineral Density: 0.875 g/cm/cm, T score: -1.5. Left Hip: Bone Mineral Density: 1.032 g/cm/cm,T score: -0.5. FRAX risk factors: 10 year risk of major osteoporotic fracture: 7.1% major osteoporotic fracture = hip, clinical vertebral, proximal humerus, distal forearm 10 year risk of hip fracture: 2.4% (T score greater or equal to -1.0: NORMAL) (T score from -1.1 to -2.4: OSTEOPENIA) (T score less than or equal to -2.5 to: OSTEOPOROSIS) Impression: By WHO criteria, this patient has low bone density (osteopenia). Patients with diagnosis of osteoporosis or osteopenia should have regular bone mineral density assess ment. For those eligible for Medicare, routine testing is allowed once every 2 years. Testing frequ ency can be increased for patients who have rapidly progressing disease or for those who are receivin g medical therapy to restore bone mass. Reviewed by: Bob Glover MD on 01/02/2024 4:19 PM PDT Approved by: Bob Glover MD on 01/02/2024 4:19 PM PDT Station ID: [id number]
== END 2024-01-01 15:14 | disposition home or self-care (01) ==
LOC: DI 15:13
PROVIDERS: ATTEND Nurse Practitioner Family
DX: M85.88 Other specified disorders of bone density and structure, other site (principal); Z79.52 Long term (current) use of systemic steroids